=== PATIENT | female | born 1940 | race Caucasian/White ===

== ENCOUNTER 2017-08-17 05:55 | Emergency (ER) | payer MEDICARE, MEDICAID ==
[2017-08-17 05:55] VITALS: BMI 16.3
[2017-08-17 06:18] VITALS: RESP 18
--- NOTE | 2017-08-17 07:21 | C.PDOC ---
History Of Present Illness 76 yr old female with PMHx of 2 cardiac stents s/p heart attack "years ago" and colostomy bag presents to the ER for evaluation of fever, chills and dry cough for the past 2-3 days. Patient denies chest pain, SOB, nausea, vomiting, abdominal pain, diarrhea or headache. PMD: Dr. Ling Medina Time Seen by Provider: 08/17/17 07:07 Chief Complaint (Nursing): Flu-like Symptoms History Per: Patient History/Exam Limitations: no limitations Onset/Duration Of Symptoms: Days (2-3) Current Symptoms Are (Timing): Still Present Past Medical History Reviewed: Historical Data, Nursing Documentation, Vital Signs Vital Signs: Last Vital Signs Temp 98.6 F 08/17/17 10:28 Pulse 76 08/17/17 10:28 Resp 18 08/17/17 10:28 BP 166/70 H 08/17/17 10:28 Pulse Ox 97 08/17/17 10:42 - Medical History PMH: CAD, Cardia Arrhythmia, Gastritis, HTN, Hypercholesterolemia Surgical History: Coronary Stent Family History: States: No Known Family Hx - Social History Hx Tobacco Use: No Hx Alcohol Use: No Hx Substance Use: No - Immunization History Hx Tetanus Toxoid Vaccination: No Hx Influenza Vaccination: No Hx Pneumococcal Vaccination: No Review Of Systems Except As Marked, All Systems Reviewed And Found Negative. Constitutional: Positive for: Fever (100), Chills Cardiovascular: Negative for: Chest Pain Respiratory: Positive for: Cough (dry). Negative for: Shortness of Breath Gastrointestinal: Negative for: Nausea, Vomiting, Abdominal Pain, Diarrhea Neurological: Negative for: Headache Physical Exam - Physical Exam Appears: Non-toxic, No Acute Distress Skin: Warm, Dry, No Rash Head: Atraumatic, Normacephalic Eye(s): bilateral: Normal Inspection, PERRL, EOMI Oral Mucosa: Moist Neck: Normal, Normal ROM, Supple Cardiovascular: Rhythm Regular, No Murmur Respiratory: Normal Breath Sounds, No Rales, No Rhonchi, No Stridor, No Wheezing Gastrointestinal/Abdominal: Normal Exam, Soft, No Tenderness, No Guarding, No Rebound, Other ((+) Colostomy bag present) Extremity: Normal ROM, No Swelling Neurological/Psych: Oriented x3, Normal Speech, Normal Motor ED Course And Treatment - Laboratory Results Result Diagrams: 08/17/17 08:45 08/17/17 10:00 ECG: Interpreted By Me, Viewed By Me ECG Rhythm: Sinus Rhythm Interpretation Of ECG: Normal intervals. T wave inversion in lead 3. Rate From EC (BPM) O2 Sat by Pulse Oximetry: 97 (RA) Pulse Ox Interpretation: Normal - Other Rad CXR X-Ray: Viewed By Me, Read By Radiologist Interpretation: HISTORY: COUGH SOB. COMPARISON: 08/13/2015. TECHNIQUE: Chest PA and lateral. FINDINGS: LUNGS: No consolidative infiltrate. PLEURA: No significant pleural effusion identified. No pneumothorax apparent. CARDIOVASCULAR: Normal heart size para cardiac stent noted. OSSEOUS STRUCTURES : No significant abnormalities. VISUALIZED UPPER ABDOMEN: Normal. OTHER FINDINGS: Metallic densities right paracentral on clothing. IMPRESSION: No consolidative infiltrate. No pulmonary venous congestion or pneumothorax Medical Decision Making Medical Decision Making: IMPRESSION: Flu like symptoms PLAN: * CXR * EKG * Troponin * CBC * CMP * BNP * Influenza NOTE: * Labs all resulted normal. * Patient is given Rx. * Patient is stable for discharge home. Disposition Counseled Patient/Family Regarding: Studies Performed, Diagnosis, Need For Followup, Rx Given - Disposition Disposition: HOME/ ROUTINE Disposition Time: 10:40 Condition: STABLE Additional Instructions: follow up with your doctor in 2 days call to make an appointment take medications as prescribed return to ER if symptoms worsens or progress Prescriptions: Albuterol HFA [Ventolin HFA 90 mcg/actuation (8 g)] 2 puff IH [id number] #1 puff Azithromycin [Zithromax] 250 mg PO DAILY #4 tab Hydrocodone/Chlorpheniramine [Tussionex] 5 ml PO QPM #80 ml Instructions: Acute Bronchitis (ED) Forms: [facility] (Vietnamese), General Discharge Instructions Print Language: MALAGASY - Clinical Impression Clinical Impression: Bronchitis - Scribe Statement The provider has reviewed the documentation as recorded by the Ximena Bryant Provider Attestation: All medical record entries made by the Ruddyiblibrado were at my direction and personally dictated by me. I have reviewed the chart and agree that the record accurately reflects my personal performance of the history, physical exam, medical decision making, and the department course for this patient. I have also personally directed, reviewed, and agree with the discharge instructions and disposition.
--- NOTE | 2017-08-17 08:11 | RAD ---
HISTORY: COUGH SOB COMPARISON: 08/13/2015 TECHNIQUE: Chest PA and lateral FINDINGS: LUNGS: No consolidative infiltrate PLEURA: No significant pleural effusion identified. No pneumothorax apparent. CARDIOVASCULAR: Normal heart size para cardiac stent noted OSSEOUS STRUCTURES: No significant abnormalities. VISUALIZED UPPER ABDOMEN: Normal. OTHER FINDINGS: Metallic densities right paracentral on clothing IMPRESSION: No consolidative infiltrate. No pulmonary venous congestion or pneumothorax
[2017-08-17 08:48] LABS: BASO % 0.7 % (0.0-2.0); EOS % 0.1 % (0.0-4.0); HEMOGLOBIN 14.1 g/dL (11.0-16.0); LYMPH # 0.6 K/uL (1.0-4.3); LYMPH % 9.6 % (20.0-40.0); MEAN CELL VOLUME 74.3 fL (81.0-99.0); MEAN CORPUSCULAR HEMOGLOBIN 24.6 pg (27.0-31.0); MEAN CORPUSCULAR HGB CONC 33.1 g/dL (33.0-37.0); MONO # 0.7 K/uL (0.0-0.8); MONO % 11.9 % (0.0-10.0); NEUT # 4.8 K/uL (1.8-7.0); NEUT % 77.7 % (50.0-75.0); NRBC % 0.1 % (0.0-2.0); PLATELET COUNT 139 K/uL (130-400); RBC 5.73 Mil/uL (3.80-5.20); RED CELL DISTRIBUTION WIDTH 14.5 % (11.5-14.5); WHITE BLOOD COUNT 6.2 K/uL (4.8-10.8)
[2017-08-17 09:40] LABS: ANISOCYTOSIS SLIGHT; BANDS 3 % (0-2); LYMPHOCYTE 10 % (20-40); MONOCYTE 11 % (0-10); NEUTROPHIL 76 % (50-75); PLATELET ESTIMATE NORMAL (NORMAL); TOTAL CELLS COUNTED 100
[2017-08-17 09:42] LABS: LARGE PLATELETS PRESENT; TOXIC GRANULATION PRESENT
[2017-08-17 10:22] LABS: ALB/GLOB RATIO 1.1 (1.0-2.1); ALBUMIN 3.8 g/dL (3.5-5.0); ALT/SGPT 23 U/L (9-52); AST/SGOT 36 U/L (14-36); BLOOD UREA NITROGEN 11 mg/dL (7-17); CALCIUM 8.7 mg/dl (8.6-10.4); GFR AFRICAN-AMERICAN > 60; GFR NON-AFRICAN AMERICAN > 60
[2017-08-17 10:28] VITALS: BP 166/70; PULSE 76; TEMP 98.6
[2017-08-17 10:34] LABS: B-TYPE NATRIURETIC PEPTIDE 565 pg/mL (0-900)
[2017-08-17 10:42] VITALS: O2SAT 97
--- NOTE | 2017-08-17 20:54 | CARD ---
APPROVED REPORT EKG Measurement Heart [id number] <Conclusion> Normal sinus rhythm Nonspecific ST abnormality Abnormal ECG
== END 2017-08-17 11:05 | disposition home or self-care (01) ==
LOC: C.ER 05:55
DX: J40 Bronchitis, not specified as acute or chronic (principal); I10 Essential (primary) hypertension; E78.00 Pure hypercholesterolemia, unspecified; I25.10 Atherosclerotic heart disease of native coronary artery without angina pectoris

== ENCOUNTER 2018-03-07 07:20 | Emergency (ER) | payer MEDICARE, MEDICAID ==
[2018-03-07 07:21] VITALS: BMI 16.3
[2018-03-07] MEDS ORDERED: Aluminum Hydroxide/Magnesium Hydroxide Susp (30 mL) ONE (07:48)
[2018-03-07] MEDS ORDERED: Sodium Chloride 0.9% 1,000 ML ONE (07:49)
--- NOTE | 2018-03-07 07:53 | C.PDOC ---
History Of Present Illness 77yo female, comes to ER via ambulance after she experienced a "burning" abdominal discomfort after she drank orange juice this morning. She reports an episode of vomiting as well. Patient states she has had similar episodes previously as well. She denies any fever, chills, chest pain and offers no other complaints. Time Seen by Provider: 03/07/18 07:22 Chief Complaint (Nursing): Abdominal Pain History Per: Patient History/Exam Limitations: no limitations Onset/Duration Of Symptoms: Mins Current Symptoms Are (Timing): Still Present Location Of Pain/Discomfort: Diffuse Quality Of Discomfort: Burning Associated Symptoms: Vomiting Recent travel outside of the [place]: No Past Medical History Reviewed: Historical Data, Nursing Documentation, Vital Signs Vital Signs: Last Vital Signs Temp 97.7 F 03/07/18 10:00 Pulse 52 L 03/07/18 10:00 Resp 20 03/07/18 10:00 BP 145/59 L 03/07/18 10:00 Pulse Ox 99 03/07/18 10:00 - Medical History PMH: CAD, Cardia Arrhythmia, Gastritis, HTN, Hypercholesterolemia Surgical History: Coronary Stent Other Surgeries: colostomy Family History: States: No Known Family Hx - Social History Hx Tobacco Use: No Hx Alcohol Use: No Hx Substance Use: No - Immunization History Hx Tetanus Toxoid Vaccination: No Hx Influenza Vaccination: No Hx Pneumococcal Vaccination: No Review Of Systems Except As Marked, All Systems Reviewed And Found Negative. 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), left: Normal Inspection, PERRL, EOMI Oral Mucosa: Moist Throat: Normal Neck: Supple Cardiovascular: Rhythm Regular Respiratory: Normal Breath Sounds Gastrointestinal/Abdominal: Soft, No Tenderness, No Guarding, No Rebound Back: Normal Inspection Neurological/Psych: Oriented x3 Gait: Steady ED Course And Treatment - Laboratory Results Result Diagrams: 03/07/18 08:00 03/07/18 08:00 Lab Interpretation: Normal ECG: Interpreted By Me, Viewed By Me ECG Rhythm: Sinus Bradycardia ECG Interpretation: No Acute Changes Rate From EC O2 Sat by Pulse Oximetry: 99 (RA) Pulse Ox Interpretation: Normal Progress Note: Labs and UA ordered. Patient given IV Fluids, Maalox, Pepcid and Zofran. On re-evaluation abdomen soft, feeling better, tolerating PO Reassessment Condition: Improved Disposition Counseled Patient/Family Regarding: Studies Performed, Diagnosis, Need For Followup, Rx Given - Disposition Referrals: Mirtha Medina MD [Staff Provider] - Disposition: HOME/ ROUTINE Disposition Time: 10:00 Condition: STABLE Additional Instructions: Follow up with your PMD for further evaluation Prescriptions: Famotidine [Pepcid AC] 10 mg PO BID #20 tablet Instructions: Gastritis, Ulcer and Gastritis Diet Forms: [facility] (Estonian) - POA Present On Arrival: None - Clinical Impression Clinical Impression: Vomiting, Gastritis - PA / CASTING MACHINE OPERATOR / Resident Statement MD/DO has reviewed & agrees with the documentation as recorded. - Scribe Statement The provider has reviewed the documentation as recorded by the Ximena Reich Provider Attestation: All medical record entries made by the Ximena were at my direction and personally dictated by me. I have reviewed the chart and agree that the record accurately reflects my personal performance of the history, physical exam, medical decision making, and the department course for this patient. I have also personally directed, reviewed, and agree with the discharge instructions and disposition.
[2018-03-07] MEDS: Sodium Chloride 0.9% 1,000 ML IV ONE (08:00)
[2018-03-07] MEDS: Alum-Mag Hydrox-Simethicone Susp (30 mL) PO STA (08:04)
[2018-03-07 08:05] LABS: BASO # 0.1 K/uL (0.0-0.2); BASO % 1.2 % (0.0-2.0); EOS # 0.2 K/uL (0.0-0.7); HEMOGLOBIN 11.8 g/dL (11.0-16.0); LYMPH # 2.1 K/uL (1.0-4.3); MEAN CELL VOLUME 75.6 fL (81.0-99.0); MEAN CORPUSCULAR HEMOGLOBIN 24.5 pg (27.0-31.0); MEAN CORPUSCULAR HGB CONC 32.4 g/dL (33.0-37.0); MEAN PLATELET VOLUME 7.6 fL (7.2-11.7); MONO # 0.7 K/uL (0.0-0.8); MONO % 8.7 % (0.0-10.0); NEUT # 4.6 K/uL (1.8-7.0); NEUT % 60.1 % (50.0-75.0); RBC 4.8 Mil/uL (3.80-5.20); RED CELL DISTRIBUTION WIDTH 14.4 % (11.5-14.5); WHITE BLOOD COUNT 7.7 K/uL (4.8-10.8)
[2018-03-07 08:16] LABS: ALBUMIN 3.6 g/dL (3.5-5.0); ALT/SGPT 19 U/L (9-52); AST/SGOT 19 U/L (14-36); BLOOD UREA NITROGEN 17 mg/dL (7-17); CALCIUM 9.4 mg/dl (8.6-10.4); GFR AFRICAN-AMERICAN > 60; GFR NON-AFRICAN AMERICAN > 60; LIPASE 184 U/L (23-300)
[2018-03-07 08:33] VITALS: PULSE 52; RESP 20
[2018-03-07 09:24] VITALS: O2SAT 99
[2018-03-07 09:56] LABS: SQUAMOUS EPITHIAL 3 /hpf (0-5); URINE BILIRUBIN NEGATIVE (NEGATIVE); URINE BLOOD NEGATIVE (NEGATIVE); URINE CLARITY Hazy (Clear); URINE COLOR Yellow (YELLOW); URINE GLUCOSE (UA) NORMAL (Normal); URINE LEUKOCYTE ESTERASE TRACE Leu/uL (Negative); URINE PROTEIN NEGATIVE (NEGATIVE); URINE UROBILINOGEN NORMAL mg/dL (0.2-1.0)
[2018-03-07 10:07] VITALS: BP 145/59; TEMP 97.7
--- NOTE | 2018-03-08 11:11 | CARD ---
APPROVED REPORT Date of service: 03/07/2018 EKG Measurement Heart [id number] 220P22 [id number] <Conclusion> Sinus bradycardia with sinus arrhythmia with 1st degree AV block Minimal voltage criteria for LVH, may be normal variant Borderline ECG
== END 2018-03-07 10:09 | disposition home or self-care (01) ==
LOC: C.ER 07:20
DX: K29.70 Gastritis, unspecified, without bleeding (principal); I25.10 Atherosclerotic heart disease of native coronary artery without angina pectoris; I10 Essential (primary) hypertension; E78.00 Pure hypercholesterolemia, unspecified; Z95.5 Presence of coronary angioplasty implant and graft
CPT/HCPCS: 80053; 81001; 83690; 85025; 93005; 96361; 96374; 96375; 99285; J2405; J7030

== ENCOUNTER 2018-08-04 17:42 | Emergency (ER) | payer MEDICARE, MEDICAID ==
[2018-08-04 17:43] VITALS: BMI 16.3
[2018-08-04 17:58] VITALS: RESP 14; O2SAT 100
[2018-08-04 18:41] LABS: BASO # 0.1 K/uL (0.0-0.2); BASO % 1.1 % (0.0-2.0); EOS # 0.1 K/uL (0.0-0.7); HEMOGLOBIN 12.8 g/dL (11.0-16.0); LYMPH # 1.3 K/uL (1.0-4.3); LYMPH % 13.2 % (20.0-40.0); MEAN CORPUSCULAR HEMOGLOBIN 24.3 pg (27.0-31.0); MEAN CORPUSCULAR HGB CONC 32.4 g/dL (33.0-37.0); MONO # 0.6 K/uL (0.0-0.8); MONO % 5.7 % (0.0-10.0); NRBC % 0.1 % (0.0-2.0); RBC 5.26 Mil/uL (3.80-5.20); RED CELL DISTRIBUTION WIDTH 13.8 % (11.5-14.5); WHITE BLOOD COUNT 10.1 K/uL (4.8-10.8)
[2018-08-04 18:54] LABS: ALB/GLOB RATIO 1.2 (1.0-2.1); ALBUMIN 4.2 g/dL (3.5-5.0); ALT/SGPT 21 U/L (9-52); AST/SGOT 26 U/L (14-36); BLOOD UREA NITROGEN 19 mg/dL (7-17); CALCIUM 9.5 mg/dl (8.6-10.4); GFR NON-AFRICAN AMERICAN > 60
[2018-08-04 19:33] LABS: B-TYPE NATRIURETIC PEPTIDE 514 pg/mL (0-900)
[2018-08-04] MEDS ORDERED: Lidocaine 2% MPF (5 ml) Inj ONE (19:40)
[2018-08-04] MEDS ORDERED: Bacitracin 500 Units/gm Oint Foilpak UD ONE (19:40)
--- NOTE | 2018-08-04 20:48 | C.PDOC ---
History Of Present Illness 77 y/o female comes in complaining of a laceration on her left forehead s/p fall earlier today. Patient states she tripped and fell at home, striking her forehead on the ground. Patient was home with her . Also complains she had abdominal pain which caused her to lean forward, which caused her to fall over. Patient reports shes been thinking about her son who committed suicide at age 19. Time Seen by Provider: 08/04/18 18:19 Chief Complaint (Nursing): Syncope History Per: Patient History/Exam Limitations: no limitations Onset/Duration Of Symptoms: Hrs Current Symptoms Are (Timing): Still Present Past Medical History Reviewed: Historical Data, Nursing Documentation, Vital Signs Vital Signs: Last Vital Signs Temp 98.0 F 08/04/18 17:50 Pulse 59 L 08/04/18 17:50 Resp 14 08/04/18 17:50 BP 161/50 H 08/04/18 17:50 Pulse Ox 100 08/04/18 17:50 - Medical History PMH: CAD, Cardia Arrhythmia, Gastritis, HTN, Hypercholesterolemia Denies: Atrial Fibrillation, CHF, Mitral Valve Prolapse, Peripheral Edema, Chronic Kidney Disease Surgical History: Coronary Stent (x2) Denies: Pacemaker Family History: States: No Known Family Hx - Social History Hx Tobacco Use: No Hx Alcohol Use: No Hx Substance Use: No - Immunization History Hx Tetanus Toxoid Vaccination: No Hx Influenza Vaccination: No Hx Pneumococcal Vaccination: No Review Of Systems Except As Marked, All Systems Reviewed And Found Negative. Constitutional: Negative for: Fever, Chills Cardiovascular: Negative for: Chest Pain Respiratory: Negative for: Shortness of Breath Gastrointestinal: Positive for: Abdominal Pain. Negative for: Vomiting Skin: Positive for: Other (laceration on L forehead) Neurological: Negative for: Weakness, Numbness Physical Exam - Physical Exam Appears: Non-toxic, No Acute Distress Skin: Warm, Dry Head: Atraumatic, Normacephalic, Other (Hematome in left lateral eyebrow with 2 cm laceration, no bony tenderness) Eye(s): right: Other (right eye missing from an old injury, sutures closed) Oral Mucosa: Moist Neck: Supple Cardiovascular: Rhythm Regular, No Murmur Respiratory: Normal Breath Sounds, No Rales, No Rhonchi, No Wheezing Gastrointestinal/Abdominal: Soft, No Tenderness, Other (Colostomy bag in LLQ) Extremity: Bilateral: Normal ROM Neurological/Psych: Oriented x3, Normal Speech ED Course And Treatment - Laboratory Results Result Diagrams: 08/04/18 18:38 08/04/18 18:38 Lab Results: Troponin I < 0.0120 ng/mL (0.00-0.120) 08/04/18 18:38 NT-Pro-B Natriuret Pep 514 pg/mL (0-900) 08/04/18 18:38 Total Bilirubin 0.5 mg/dL (0.2-1.3) 08/04/18 18:38 AST 26 U/L (14-36) 08/04/18 18:38 ALT 21 U/L (9-52) 08/04/18 18:38 Alkaline Phosphatase 125 U/L (38-126) 08/04/18 18:38 Total Protein 7.6 g/dL (6.3-8.3) 08/04/18 18:38 Albumin 4.2 g/dL (3.5-5.0) 08/04/18 18:38 Globulin 3.4 gm/dL (2.2-3.9) 08/04/18 18:38 Albumin/Globulin Ratio 1.2 (1.0-2.1) 08/04/18 18:38 Lab Interpretation: Normal ECG: Interpreted By Me ECG Rhythm: Sinus Rhythm ECG Interpretation: Normal Rate From EC O2 Sat by Pulse Oximetry: 100 (RA) Pulse Ox Interpretation: Normal - Radiology CXR: Interpreted by Me CXR Interpretation: Yes: No Acute Disease - CT Scan/US head Ct Other Rad Studies (CT/US): Interpreted By Me, Radiology Report Reviewed (neg) CT/US Interpretation: FINDINGS: BRAIN. No acute intraparenchymal hemorrhage. No mass lesion. No CT evidence for acute territorial infarct. No midline shift or extra-axial collections. VENTRICLES: No hydrocephalus. ORBITS: Note is made of a small calcified globe of the right orbit. SINUSES AND MASTOIDS: The paranasal sinuses and mastoid air cells are clear. BONES: No fracture. SOFT TISSUES: Unremarkable. IMPRESSION: No acute intracranial abnormality. Small calcified globe right orbit. Clinical correlation advised. Reevaluation Time: 20:46 Reassessment Condition: Improved Laceration - Laceration Repair Left lateral eye Wound Length (In cm): 2cm Anesthesia: Lidocaine 1% Wound Examination: Irrigated With Saline Wound Closure: Suture (3) Suture Technique And Material Used: Nylon (3.0) Medical Decision Making Medical Decision Making: Plan: --Head CT --EKG --Bloodwork --Chest XR --UA belly cramp pain due to anxiety about son who commited suicide @ age 19 fall to face/floor L eyebrow lac 2 cm now s/p lac repair defer abx for risk/benefit of prophylactic abx in the elderly. suture removal 7-10 days Disposition Doctor Will See Patient In The: Office Counseled Patient/Family Regarding: Studies Performed, Diagnosis - Disposition Referrals: Bonnie Richey [facility] [Outside] [facility] [Outside] Luis M Medina MD [Staff Provider] - Disposition: HOME/ ROUTINE Disposition Time: 20:47 Condition: GOOD Additional Instructions: head CT negative 3 sutures to L eyebrow- suture removal in 7-10 days keep clean and bandaged. Instructions: Laceration Repair With Stitches (DC), Preventing Falls Forms: [employer] (Welsh) - Clinical Impression Clinical Impression: Facial laceration - Scribe Statement The provider has reviewed the documentation as recorded by the Ximena Li Provider Attestation: All medical record entries made by the Scribe were at my direction and personally dictated by me. I have reviewed the chart and agree that the record accurately reflects my personal performance of the history, physical exam, medical decision making, and the department course for this patient. I have also personally directed, reviewed, and agree with the discharge instructions and disposition.
--- NOTE | 2018-08-04 21:33 | CT ---
Date of service: 08/04/2018 PROCEDURE: CT HEAD WITHOUT CONTRAST. HISTORY: syncope COMPARISON: None available. TECHNIQUE: Axial computed tomography images were obtained through the head/brain without intravenous contrast. Radiation dose: Total exam DLP = 899.17 mGy-cm. This CT exam was performed using one or more of the following dose reduction techniques: Automated exposure control, adjustment of the mA and/or kV according to patient size, and/or use of iterative reconstruction technique. FINDINGS: HEMORRHAGE: No intracranial hemorrhage. BRAIN: There are mild chronic microangiopathic changes. There is no mass, mass effect or abnormal extra-axial fluid collection. There is no territorial infarction. The midline sagittal structures are normal. VENTRICLES: There is mild age-related global parenchymal volume loss and proportionate enlargement of the ventricles and cortical sulci. CALVARIUM: There is no calvarial fracture or extracranial soft tissue swelling. PARANASAL SINUSES: Predominantly clear. MASTOID AIR CELLS: Predominantly clear. 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 There is mild left periorbital soft tissue swelling. IMPRESSION: No acute intracranial abnormality. Mild left periorbital soft tissue swelling. A preliminary report was provided by [email or web address].
--- NOTE | 2018-08-04 21:37 | RAD ---
Date of service: 08/04/2018 PROCEDURE: CHEST RADIOGRAPH, 1 VIEW HISTORY: SOB COMPARISON: 08/17/2017. FINDINGS: LUNGS: The lungs are well inflated and clear. PLEURA: No pneumothorax or pleural effusion. CARDIOVASCULAR: The heart is normal in size. No aortic atherosclerotic calcifications present. OSSEOUS STRUCTURES: Within normal limits for the patient's age. VISUALIZED UPPER ABDOMEN: Normal. OTHER FINDINGS: None. IMPRESSION: No active pulmonary disease.
[2018-08-04 22:46] VITALS: BP 148/52; PULSE 78; TEMP 98
--- NOTE | 2018-08-06 14:56 | CARD ---
APPROVED REPORT Date of service: 08/04/2018 EKG Measurement Heart [id number] [place] 188P45 [id number] <Conclusion> Sinus bradycardia Left ventricular hypertrophy with repolarization abnormality Abnormal ECG
== END 2018-08-04 23:22 | disposition home or self-care (01) ==
LOC: C.ER 17:42
DX: S01.112A Laceration without foreign body of left eyelid and periocular area, initial encounter (principal); W01.0XXA Fall on same level from slipping, tripping and stumbling without subsequent striking against object, initial encounter; Y92.009 Unspecified place in unspecified non-institutional (private) residence as the place of occurrence of the external cause

== ENCOUNTER 2018-09-14 23:50 | Emergency (ER) | payer MEDICARE, MEDICAID ==
[2018-09-14 23:53] VITALS: BMI 16.3
[2018-09-15] VITALS: O2SAT 99
--- NOTE | 2018-09-15 00:27 | C.PDOC ---
History Of Present Illness 77 year old female presents to the ED for suture removal. Patient denies fever, chills, nausea, vomit, new injury, fall, trauma. Time Seen by Provider: 09/15/18 00:01 Chief Complaint (Nursing): Suture/Staple Removal History Per: Patient History/Exam Limitations: no limitations Onset/Duration Of Symptoms: Days Ago Current Symptoms Are (Timing): Better Location Of Injury: Left: Face Recent travel outside of the [place]: No Additional History Per: Patient Past Medical History Reviewed: Historical Data, Nursing Documentation, Vital Signs Vital Signs: Last Vital Signs Temp 98.0 F 09/14/18 23:58 Pulse 60 09/14/18 23:58 Resp 18 09/14/18 23:58 BP 206/79 H 09/14/18 23:58 Pulse Ox 99 09/14/18 23:58 - Medical History PMH: CAD, Cardia Arrhythmia, Gastritis, HTN, Hypercholesterolemia Denies: Atrial Fibrillation, CHF, Mitral Valve Prolapse, Peripheral Edema, Chronic Kidney Disease Surgical History: Coronary Stent (x2) Denies: Pacemaker Family History: States: Unknown Family Hx - Social History Hx Tobacco Use: No Hx Alcohol Use: No Hx Substance Use: No - Immunization History Hx Tetanus Toxoid Vaccination: No Hx Influenza Vaccination: No Hx Pneumococcal Vaccination: No Review Of Systems Constitutional: Negative for: Fever, Chills Eyes: Negative for: Pain Respiratory: Negative for: Cough Gastrointestinal: Negative for: Nausea, Vomiting Skin: Positive for: Other (laceration) Neurological: Negative for: Weakness, Numbness, Headache, Dizziness Physical Exam - Physical Exam Appears: Non-toxic, No Acute Distress Skin: Normal Color, Warm, Dry Head: Atraumatic, Normacephalic, Other (healed woud left outer eyebrow, no signs of cellulitis) Eye(s): bilateral: Normal Inspection, PERRL, EOMI Oral Mucosa: Moist Neck: Normal ROM, Supple Chest: Symmetrical Extremity: Normal ROM Neurological/Psych: Oriented x3, Normal Speech, Normal Cognition, Normal Motor Gait: Steady ED Course And Treatment O2 Sat by Pulse Oximetry: 99 (ON RA) Pulse Ox Interpretation: Normal Medical Decision Making Medical Decision Making: Three sutures removed by me without difficulty. Disposition - Disposition Referrals: Mirtha Medina MD [Staff Provider] - Disposition: HOME/ ROUTINE Disposition Time: 00:27 Condition: GOOD Additional Instructions: Return if worsened. Instructions: Stitches Removal Forms: [employer] (Ugandan) - Clinical Impression Clinical Impression: Removal of suture - PA / SPORTS ADMINISTRATOR / Resident Statement MD/DO has reviewed & agrees with the documentation as recorded. - Scribe Statement The provider has reviewed the documentation as recorded by the Scribe Alexandr Benedict All medical record entries made by the Scribe were at my direction and personally dictated by me. I have reviewed the chart and agree that the record accurately reflects my personal performance of the history, physical exam, medical decision making, and the department course for this patient. I have also personally directed, reviewed, and agree with the discharge instructions and disposition.
[2018-09-15 00:40] VITALS: BP 168/72; PULSE 80; RESP 16; TEMP 98.7
== END 2018-09-15 00:39 | disposition home or self-care (01) ==
LOC: C.ER 23:50
DX: Z48.02 Encounter for removal of sutures (principal)

== ENCOUNTER 2018-09-23 16:08 | Observation (INO) | payer MEDICARE, MEDICAID ==
[2018-09-23 16:22] VITALS: BMI 16.7
--- NOTE | 2018-09-23 16:33 | C.PDOC ---
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 She describes the pain to her chest as pressure-like. Patient states that she is experiencing dizziness. Patient has a PMHx of hypertension, CAD s/p stents, hyperlipidemia, and colostomy. Patient denies fever, palpitations, shortness of breath, nausea, and vomiting. Time Seen by Provider: 09/23/18 16:18 Chief Complaint (Nursing): Chest Pain History Per: Patient History/Exam Limitations: no limitations Onset/Duration Of Symptoms: Hrs Current Symptoms Are (Timing): Still Present Quality: Pressure, "Pain" Associated Symptoms: denies: Nausea, Dyspnea Modifying Factors: None Exacerbating Factors: None Alleviating Factors: None Additional History Per: Patient Past Medical History Reviewed: Historical Data, Nursing Documentation, Vital Signs Vital Signs: Last Vital Signs Temp 98.7 F 09/23/18 16:14 Pulse 67 09/23/18 16:14 Resp 18 09/23/18 16:14 BP 222/67 H 09/23/18 16:14 Pulse Ox 100 09/23/18 16:14 - Medical History PMH: CAD, Cardia Arrhythmia, Gastritis, HTN, Hypercholesterolemia Denies: Atrial Fibrillation, CHF, Mitral Valve Prolapse, Peripheral Edema, Chronic Kidney Disease Surgical History: Coronary Stent (x2) Denies: Pacemaker Other Surgeries: Colostomy Family History: States: Unknown Family Hx - Social History Hx Tobacco Use: No Hx Alcohol Use: No Hx Substance Use: No - Immunization History Hx Tetanus Toxoid Vaccination: No Hx Influenza Vaccination: No Hx Pneumococcal Vaccination: No Review Of Systems Constitutional: Negative for: Fever, Chills, Weakness Cardiovascular: Positive for: Chest Pain. Negative for: Palpitations Respiratory: Negative for: Shortness of Breath Gastrointestinal: Negative for: Nausea, Vomiting Neurological: Positive for: Dizziness. Negative for: Weakness, Numbness Physical Exam - Physical Exam Appears: Well, Non-toxic, No Acute Distress Skin: Normal Color, Warm, Dry Head: Atraumatic, Normacephalic Neck: Normal ROM, Supple Chest: Symmetrical, No Deformity Cardiovascular: Rhythm Regular, No Murmur Respiratory: No Accessory Muscle Use Gastrointestinal/Abdominal: Soft, No Tenderness, Other (colostomy bag) Neurological/Psych: Oriented x3, Normal Speech, Normal Cognition ED Course And Treatment - Laboratory Results Result Diagrams: 09/23/18 17:18 09/23/18 17:18 ECG: Interpreted By Me, Viewed By Me ECG Rhythm: Sinus Rhythm, Nonspecific Changes Interpretation Of ECG: Non-specific ST/T wave changes. No interval changes from previous. Rate From EC O2 Sat by Pulse Oximetry: 100 (in RA) - Other Rad CXR X-Ray: Interpreted by Me, Viewed By Me Interpretation: IMPRESSION: Minimal bibasilar atelectasis. Hyperinflation; rule out underlying chronic changes of COPD. Medical Decision Making Medical Decision Making: Impression:77 year old female with chest pain ro a cs Plan: EKG and CXR ordered for patient Labs ordered with UA and troponin pt reassesed bp improving pain resolved. in nad. symptom free h/o of cad, accepted by dr foster Disposition - Disposition Disposition: HOSPITALIZED Disposition Time: 19:56 Condition: STABLE - Clinical Impression Clinical Impression: Chest pain - Scribe Statement The provider has reviewed the documentation as recorded by the Scribe (Sabine Cunha) All medical record entries made by the Scribe were at my direction and personally dictated by me. I have reviewed the chart and agree that the record accurately reflects my personal performance of the history, physical exam, medical decision making, and the department course for this patient. I have also personally directed, reviewed, and agree with the discharge instructions and disposition. Decision To Admit - Pt Status Changed To: Hospital Disposition Of: Observation - . Bed Request Type: Telemetry Admitting Physician: Mirtha Foster Patient Diagnosis: Chest pain
[2018-09-23 17:25] LABS: BASO # 0.1 K/uL (0.0-0.2); BASO % 1.1 % (0.0-2.0); EOS # 0.2 K/uL (0.0-0.7); EOS % 2.9 % (0.0-4.0); HEMOGLOBIN 12.4 g/dL (11.0-16.0); LYMPH # 2.2 K/uL (1.0-4.3); LYMPH % 34.8 % (20.0-40.0); MEAN CELL VOLUME 76.3 fL (81.0-99.0); MEAN CORPUSCULAR HEMOGLOBIN 23.6 pg (27.0-31.0); MEAN CORPUSCULAR HGB CONC 30.9 g/dL (33.0-37.0); MEAN PLATELET VOLUME 7.8 fL (7.2-11.7); MONO # 0.7 K/uL (0.0-0.8); MONO % 10.9 % (0.0-10.0); NEUT # 3.2 K/uL (1.8-7.0); NEUT % 50.3 % (50.0-75.0); RBC 5.24 Mil/uL (3.80-5.20); RED CELL DISTRIBUTION WIDTH 14.2 % (11.5-14.5); WHITE BLOOD COUNT 6.4 K/uL (4.8-10.8)
[2018-09-23 17:34] LABS: INR 1.1; PROTHROMBIN TIME 12.1 SECONDS (9.7-12.2)
[2018-09-23 17:40] LABS: ALB/GLOB RATIO 1.2 (1.0-2.1); ALBUMIN 3.9 g/dL (3.5-5.0); ALT/SGPT 8 U/L (9-52); AST/SGOT 25 U/L (14-36); BLOOD UREA NITROGEN 18 mg/dL (7-17); CALCIUM 8.9 mg/dl (8.6-10.4); GFR NON-AFRICAN AMERICAN > 60
--- NOTE | 2018-09-23 18:18 | RAD ---
Date of service: 09/23/2018 HISTORY: Chest pain COMPARISON: None available. FINDINGS: LUNGS: Lungs are slightly hyperinflated; rule out sequela of underlying COPD.. Minimal bibasilar atelectasis.. PLEURA: No significant pleural effusion identified, no pneumothorax apparent. CARDIOVASCULAR: No aortic atherosclerotic calcification present. Normal cardiac size. No pulmonary vascular congestion. OSSEOUS STRUCTURES: No significant abnormalities. VISUALIZED UPPER ABDOMEN: Normal. OTHER FINDINGS: None. IMPRESSION: Minimal bibasilar atelectasis. Hyperinflation; rule out underlying chronic changes of COPD.
[2018-09-24 02:47] LABS: CK-MB 1.05 ng/mL (0.0-3.38)
--- NOTE | 2018-09-24 08:54 | HP ---
HISTORY OF PRESENT ILLNESS: This is a 77-year-old [place] female, came to the emergency room with history of severe chest pain associated with dizziness. The patient denies having nausea, vomiting, or diaphoresis. The patient denies headache. The patient has history of coronary artery disease and stent implanted in the past. REVIEW OF SYSTEMS: CARDIOVASCULAR SYSTEM: As mentioned above. RESPIRATORY SYSTEM: Negative for shortness of breath. GASTROINTESTINAL SYSTEM: Negative for nausea, vomiting, or abdominal pain. CENTRAL NERVOUS SYSTEM: Complaining of dizziness. No headache. No loss of consciousness. No edema on the legs. No urinary complaints. No fever. PSYCHIATRICAL: The patient is anxious. All other systems are negative. PAST HISTORY: History of coronary artery disease with stent in the past, cardiac arrhythmia, gastritis, hypertension, hyperlipidemia. MEDICATIONS: The patient's medications are reviewed by me. ALLERGIES: NO KNOWN ALLERGIES. FAMILY HISTORY: No known inherited disease. SOCIAL HISTORY: Nonalcoholic. No IVDA. PHYSICAL EXAMINATION: GENERAL: This is a 77-year-old [place] female, alert, oriented, and comfortable. VITAL SIGNS: Temperature 98.7, pulse 67, respirations 18, blood pressure 220/67 mmHg, and pulse ox is 100% on room air. HEENT: Normal. NECK: JVP is flat. Carotid, no bruits. LUNGS: No rales. No wheezing. HEART: S1 and S2 are normal. No gallop. No murmur. ABDOMEN: Soft and nontender. No organomegaly. CENTRAL NERVOUS SYSTEM: No focal neurological deficit. No edema of the legs. LABORATORY DATA: On admission, EKG has normal sinus rhythm. No acute ST-T changes. First set of troponin is negative. Other lab work is within normal limit. IMPRESSION: Acute coronary syndrome; coronary artery disease; peptic ulcer disease; hypertension, uncontrolled. PLAN: The patient will be admitted to the telemetry. We will do workup to rule out myocardial infarction. We will continue all the medications. Echocardiogram. Mirtha Medina MD
[2018-09-24 08:57] LABS: CK-MB 1.09 ng/mL (0.0-3.38)
[2018-09-24] MEDS: Multiple Vitamins Tab PO SCH (09:10)
[2018-09-24] MEDS ORDERED: Pneumococcal 23-Valent Vaccine IM ONE (10:00)
[2018-09-24] MEDS ORDERED: Nitroglycerin 2% Ointment Foilpak UD TOP PRN (10:04)
[2018-09-24] MEDS: Enoxaparin 40 mg Syringe SC SCH (10:19)
--- NOTE | 2018-09-24 12:06 | CP.PCM.PN ---
Subjective - Date & Time of Evaluation Date of Evaluation: 09/24/18 Time of Evaluation: 12:04 - Subjective Subjective: FEELS BETTER. NO CP. TROPONIN NEG. Objective - Vital Signs/Intake and Output Vital Signs (last 24 hours): Temp Pulse Resp BP Pulse Ox 97.8 F 56 L 18 195/65 H 100 09/24/18 08:48 09/24/18 08:48 09/24/18 08:48 09/24/18 09:36 09/24/18 08:48 - Medications Medications: Current Medications Amlodipine Besylate (Norvasc) 5 mg PO DAILY [facility] Aspirin (Aspirin Chewable) 81 mg PO DAILY [facility] Last Admin: 09/24/18 09:10 Dose: 81 mg Clopidogrel Bisulfate (Plavix) 75 mg PO DAILY [facility] Last Admin: 09/24/18 09:10 Dose: 75 mg Enoxaparin Sodium (Lovenox) 40 mg SC DAILY [facility] Last Admin: 09/24/18 10:19 Dose: 40 mg Famotidine (Pepcid) 20 mg PO DAILY [facility] Last Admin: 09/24/18 09:10 Dose: 20 mg Influenza Virus Vaccine (Flucelvax Quad [id number] Syr) 60 mcg IM .ONCE ONE Stop: 09/26/18 10:01 Lisinopril (Zestril) 2.5 mg PO DAILY [facility] Last Admin: 09/24/18 09:10 Dose: 2.5 mg Metoprolol Tartrate (Lopressor) 25 mg PO BID [facility] Last Admin: 09/24/18 09:36 Dose: 25 mg Multivitamins (Hexavitamin) 1 tab PO DAILY [facility] Last Admin: 09/24/18 09:10 Dose: 1 tab Nitroglycerin (Nitro-Bid 2% Oint) 1 ea TOP Q6H PRN PRN Reason: Other Rosuvastatin Calcium (Crestor) 5 mg PO DAILY [facility] Last Admin: 09/24/18 09:14 Dose: 5 mg - Labs Labs: 09/23/18 17:18 09/23/18 17:18 PT 12.1 SECONDS (9.7-12.2) 09/23/18 17:18 INR 1.1 09/23/18 17:18 APTT 30 SECONDS (21-34) 09/23/18 17:18 - Constitutional Appears: No Acute Distress, Chronically Ill - Eye Exam Eye Exam: Normal appearance, PERRL - ENT Exam ENT Exam: Mucous Membranes Moist - Respiratory Exam Respiratory Exam: Clear to Ausculation Bilateral, NORMAL BREATHING PATTERN - Cardiovascular Exam Cardiovascular Exam: REGULAR RHYTHM, +S1, +S2 - GI/Abdominal Exam GI & Abdominal Exam: Soft, Normal Bowel Sounds - Extremities Exam Extremities Exam: Full ROM, Normal Capillary Refill, Normal Inspection. absent: Joint Swelling, Pedal Edema - Neurological Exam Neurological Exam: Alert, Awake, CN II-XII Intact, Normal Gait, Oriented x3 - Psychiatric Exam Psychiatric exam: Normal Affect, Normal Mood Assessment and Plan - Assessment and Plan (Free Text) Assessment: CAD. HTN. Plan: CONSULT DR. PALMA. EXERCISE TEST.
[2018-09-24 15:43] VITALS: RESP 20
--- NOTE | 2018-09-24 18:22 | CARD ---
APPROVED REPORT Date of service: 09/24/2018 EXAM: Two-dimensional and M-mode echocardiogram with Doppler and color Doppler. Other Information Quality : GoodRhythm : INDICATION Chest Pain Palpitations RISK FACTORS Hypertension 2D DIMENSIONS IVSd0.7 (0.7-1.1cm)LVDd4.1 (3.9-5.9cm) PWd0.8 (0.7-1.1cm)LA Kdnhpg30 (18-58mL) LVDs2.5 (2.5-4.0cm)FS (%) 39.7 % LVEF (%)70.7 (>50%)LVEF (Ludwig's)58.98 % IVC0.00 cm M-Mode DIMENSIONS RVDd1.61 (2.1-3.2cm)Left Atrium (MM)3.02 (2.5-4.0cm) IVSd0.62 (0.7-1.1cm)Aortic Root2.50 (2.2-3.7cm) LVDd4.45 (4.0-5.6cm)Aortic Cusp Exc.1.61 (1.5-2.0cm) PWd0.68 (0.7-1.1cm)FS (%) 49 % LVDs2.29 (2.0-3.8cm)TAPSE15.51 cm LVEF (%)70 (>50%) Aortic Valve AI P 1/2 [id number] Mitral Valve MV E Zqnaasui85.9cm/sMV A Flyflalp82.4cm/sE/A ratio1.1 TDI Lateral E' Peak V5.71cm/sMedial E' Peak V5.45cm/sE/Lateral E'10.7 E/Medial E'11.2 Tricuspid Valve TR Peak Mqxsiaei745tl/sTR Peak Gr.67jrUwDWEN33ihKm LEFT VENTRICLE The left ventricle is normal size. There is normal left ventricular wall thickness. The left ventricular function is normal. The left ventricular ejection fraction is within the normal range. 59% No regional wall motion abnormalities noted. The left ventricular diastolic function is indeterminate. No left ventricle thrombus noted on this study. There is no ventricular septal defect visualized. There is no left ventricular aneurysm. There is no mass noted in the left ventricle. RIGHT VENTRICLE The right ventricle is normal size. There is normal right ventricular wall thickness. The right ventricular systolic function is normal. ATRIA The left atrium size is normal. The right atrium size is normal. The interatrial septum is intact with no evidence for an atrial septal defect. AORTIC VALVE The aortic valve is normal in structure and function. Moderate aortic regurgitation is present. There is no aortic valvular stenosis. There is no aortic valvular vegetation. MITRAL VALVE The mitral valve is normal in structure and function. There is no evidence of mitral valve prolapse. There is no mitral valve stenosis. There is mild mitral valve regurgitation noted. TRICUSPID VALVE The tricuspid valve is normal in structure and function. There is mild tricuspid valve regurgitation noted. Estiamaed PA systolic pressure is 39 mm Hg. There is no tricuspid valve prolapse or vegetation. There is no tricuspid valve stenosis. PULMONIC VALVE The pulmonary valve is normal in structure and function. There is no pulmonic valvular regurgitation. There is no pulmonic valvular stenosis. GREAT VESSELS The aortic root is normal in size. The ascending aorta is normal in size. The pulmonary artery is normal. The IVC is normal in size and collapses >50% with inspiration. PERICARDIAL EFFUSION The pericardium appears normal. There is no pleural effusion. <Conclusion> Normal LV systolic function. Moderate aortic regurgtation. Mild pulmonary HTN.
--- NOTE | 2018-09-24 19:24 | CARD ---
APPROVED REPORT Date of service: 09/23/2018 EKG Measurement Heart [id number] <Conclusion> Normal sinus rhythm with sinus arrhythmia Minimal voltage criteria for LVH, may be normal variant Nonspecific ST abnormality Abnormal ECG
--- NOTE | 2018-09-24 19:51 | CP.PCM.CON ---
History of Present Illness - History of Present Illness History of Present Illness: 77 F with hx of CAD s/p stents 2010, HYN and hyperlipidemia admitted for chest pain and dizziness Check stress test and ECHO in am 77 year old female presents to ED with complaint of chest pain that began [employer]. She describes the pain to her chest as pressure-like. Patient states that she is experiencing dizziness. Patient has a PMHx of hypertension, CAD s/p stents, hyperlipidemia, and colostomy. Patient denies fever, palpitations, shortness of breath, nausea, and vomiting. Chief Complaint (Nursing): Chest Pain History Per: Patient History/Exam Limitations: no limitations Onset/Duration Of Symptoms: Hrs Current Symptoms Are (Timing): Still Present Quality: Pressure, "Pain" Associated Symptoms: denies: Nausea, Dyspnea Modifying Factors: None Exacerbating Factors: None Alleviating Factors: None Additional History Per: Patient - Medical History PMH: CAD, Cardia Arrhythmia, Gastritis, HTN, Hypercholesterolemia Denies: Atrial Fibrillation, CHF, Mitral Valve Prolapse, Peripheral Edema, Chronic Kidney Disease Surgical History: Coronary Stent (x2) Denies: Pacemaker Other Surgeries: Colostomy Family History: States: Unknown Family Hx - Social History Hx Tobacco Use: No Hx Alcohol Use: No Hx Substance Use: No - Immunization History Hx Tetanus Toxoid Vaccination: No Hx Influenza Vaccination: No Hx Pneumococcal Vaccination: No Review Of Systems Constitutional: Negative for: Fever, Chills, Weakness Cardiovascular: Positive for: Chest Pain. Negative for: Palpitations Respiratory: Negative for: Shortness of Breath Gastrointestinal: Negative for: Nausea, Vomiting Neurological: Positive for: Dizziness. Negative for: Weakness, Numbness Physical Exam - Physical Exam Appears: Well, Non-toxic, No Acute Distress Skin: Normal Color, Warm, Dry Head: Atraumatic, Normacephalic Neck: Normal ROM, Supple Chest: Symmetrical, No Deformity Cardiovascular: Rhythm Regular, No Murmur Respiratory: No Accessory Muscle Use Gastrointestinal/Abdominal: Soft, No Tenderness, Other (colostomy bag) Neurological/Psych: Oriented x3, Normal Speech, Normal Cognition Past Patient History - Infectious Disease Hx of Infectious Diseases: None - Past Medical History & Family History Past Medical History?: Yes - Past Social History Smoking Status: Never Smoked - CARDIAC Hx Atrial Fibrillation: No Hx Cardia Arrhythmia: Yes Hx Congestive Heart Failure: No Hx Hypercholesterolemia: Yes Hx Hypertension: Yes Hx Mitral Valve Prolapse: No Hx Pacemaker: No Hx Peripheral Edema: No - PULMONARY Hx Respiratory Disorders: No - NEUROLOGICAL Hx Neurological Disorder: No - HEENT 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) - RENAL Hx Chronic Kidney Disease: No - ENDOCRINE/METABOLIC Hx Endocrine Disorders: No - HEMATOLOGICAL/ONCOLOGICAL Hx Blood Disorders: No - INTEGUMENTARY Hx Dermatological Problems: No - MUSCULOSKELETAL/RHEUMATOLOGICAL Hx Musculoskeletal Disorders: No Hx Falls: No - GASTROINTESTINAL Hx Gastritis: Yes - GENITOURINARY/GYNECOLOGICAL Hx Genitourinary Disorders: No - PSYCHIATRIC Hx Substance Use: No - SURGICAL HISTORY Hx Coronary Stent: Yes (x2) - ANESTHESIA Hx Anesthesia: Yes Hx Anesthesia Reactions: No Meds Allergies/Adverse Reactions: Allergies Allergy/AdvReac Type Severity Reaction Status Date / Time pain med AdvReac Uncoded 09/23/18 16:13 - Medications Medications: Current Medications Amlodipine Besylate (Norvasc) 5 mg PO DAILY [facility] Aspirin (Aspirin Chewable) 81 mg PO DAILY [facility] Last Admin: 09/24/18 09:10 Dose: 81 mg Clopidogrel Bisulfate (Plavix) 75 mg PO DAILY [facility] Last Admin: 09/24/18 09:10 Dose: 75 mg Enoxaparin Sodium (Lovenox) 40 mg SC DAILY [facility] Last Admin: 09/24/18 10:19 Dose: 40 mg Famotidine (Pepcid) 20 mg PO DAILY [facility] Last Admin: 09/24/18 09:10 Dose: 20 mg Influenza Virus Vaccine (Flucelvax Quad [id number] Syr) 60 mcg IM .ONCE ONE Stop: 09/26/18 10:01 Lisinopril (Zestril) 2.5 mg PO DAILY [facility] Last Admin: 09/24/18 09:10 Dose: 2.5 mg Metoprolol Tartrate (Lopressor) 25 mg PO BID [facility] Last Admin: 09/24/18 17:34 Dose: Not Given Multivitamins (Hexavitamin) 1 tab PO DAILY [facility] Last Admin: 09/24/18 09:10 Dose: 1 tab Nitroglycerin (Nitro-Bid 2% Oint) 1 ea TOP Q6H PRN PRN Reason: Other Rosuvastatin Calcium (Crestor) 5 mg PO DAILY [facility] Last Admin: 09/24/18 09:14 Dose: 5 mg Results - Vital Signs Recent Vital Signs: Last Vital Signs Temp 97.9 F 03/04/19 15:42 Pulse 59 L 09/24/18 15:42 Resp 20 09/24/18 15:42 BP 142/68 09/24/18 17:34 Pulse Ox 100 09/24/18 15:42 - Labs Result Diagrams: 09/23/18 17:18 09/23/18 17:18 Labs: Laboratory Results - last 24 hr 09/24/18 09/24/18 02:04 08:06 Total Creatine Kinase 101 94 CK-MB (Mass) 1.05 1.09 Troponin I < 0.0120 < 0.0120 Assessment & Plan - Assessment and Plan (Free Text) Assessment: 77 F with hx of CAD s/p stents 2010, HYN and hyperlipidemia admitted for chest pain and dizziness Check stress test and ECHO in am
[2018-09-25 07:32] LABS: BASO # 0.2 K/uL (0.0-0.2); BASO % 2.7 % (0.0-2.0); EOS # 0.1 K/uL (0.0-0.7); EOS % 1.4 % (0.0-4.0); HEMOGLOBIN 13.9 g/dL (11.0-16.0); LYMPH % 32.8 % (20.0-40.0); MEAN CELL VOLUME 76.6 fL (81.0-99.0); MEAN CORPUSCULAR HEMOGLOBIN 24.1 pg (27.0-31.0); MEAN CORPUSCULAR HGB CONC 31.4 g/dL (33.0-37.0); MONO # 0.6 K/uL (0.0-0.8); MONO % 9.6 % (0.0-10.0); NEUT # 3.3 K/uL (1.8-7.0); NEUT % 53.5 % (50.0-75.0); NRBC % 0.1 % (0.0-2.0); RBC 5.77 Mil/uL (3.80-5.20); RED CELL DISTRIBUTION WIDTH 13.9 % (11.5-14.5); WHITE BLOOD COUNT 6.2 K/uL (4.8-10.8)
[2018-09-25 07:40] VITALS: BP 183/68; TEMP 97.8; O2SAT 98
[2018-09-25 07:48] LABS: ALB/GLOB RATIO 1.2 (1.0-2.1); ALBUMIN 4.5 g/dL (3.5-5.0); ALT/SGPT 10 U/L (9-52); AST/SGOT 27 U/L (14-36); BLOOD UREA NITROGEN 12 mg/dL (7-17); CALCIUM 9.4 mg/dl (8.6-10.4); GFR NON-AFRICAN AMERICAN > 60
[2018-09-25] MEDS: Multiple Vitamins Tab PO SCH (09:05)
[2018-09-25] MEDS: Enoxaparin 40 mg Syringe SC SCH (09:06)
--- NOTE | 2018-09-25 12:31 | CP.PCM.PN ---
Subjective - Date & Time of Evaluation Date of Evaluation: 09/25/18 Time of Evaluation: 12:29 - Subjective Subjective: ASYMPTOMATIC. Objective - Vital Signs/Intake and Output Vital Signs (last 24 hours): Temp Pulse Resp BP Pulse Ox 97.8 F 66 20 183/68 H 98 09/25/18 07:39 09/25/18 07:39 09/25/18 07:39 09/25/18 09:05 09/25/18 07:39 - Medications Medications: Current Medications Amlodipine Besylate (Norvasc) 5 mg PO DAILY [facility] Last Admin: 09/25/18 09:05 Dose: 5 mg Aspirin (Aspirin Chewable) 81 mg PO DAILY [facility] Last Admin: 09/25/18 09:04 Dose: 81 mg Clopidogrel Bisulfate (Plavix) 75 mg PO DAILY [facility] Last Admin: 09/25/18 09:05 Dose: 75 mg Enoxaparin Sodium (Lovenox) 40 mg SC DAILY [facility] Last Admin: 09/25/18 09:06 Dose: 40 mg Famotidine (Pepcid) 20 mg PO DAILY [facility] Last Admin: 09/25/18 09:05 Dose: 20 mg Influenza Virus Vaccine (Flucelvax Quad [id number] Syr) 60 mcg IM .ONCE ONE Stop: 09/26/18 10:01 Lisinopril (Zestril) 5 mg PO DAILY [facility] Last Admin: 09/25/18 10:48 Dose: 5 mg Metoprolol Tartrate (Lopressor) 25 mg PO BID [facility] Last Admin: 09/25/18 09:05 Dose: 25 mg Multivitamins (Hexavitamin) 1 tab PO DAILY [facility] Last Admin: 09/25/18 09:05 Dose: 1 tab Nitroglycerin (Nitro-Bid 2% Oint) 1 ea TOP Q6H PRN PRN Reason: Other Rosuvastatin Calcium (Crestor) 5 mg PO DAILY [facility] Last Admin: 09/25/18 09:05 Dose: 5 mg - Labs Labs: 09/25/18 07:19 09/25/18 07:19 PT 12.1 SECONDS (9.7-12.2) 09/23/18 17:18 INR 1.1 09/23/18 17:18 APTT 30 SECONDS (21-34) 09/23/18 17:18 - Constitutional Appears: No Acute Distress, Chronically Ill - Eye Exam Eye Exam: Normal appearance, PERRL - ENT Exam ENT Exam: Mucous Membranes Moist - Respiratory Exam Respiratory Exam: Clear to Ausculation Bilateral - Cardiovascular Exam Cardiovascular Exam: REGULAR RHYTHM, +S1, +S2 - GI/Abdominal Exam GI & Abdominal Exam: Soft, Normal Bowel Sounds - Extremities Exam Extremities Exam: Full ROM, Normal Capillary Refill, Normal Inspection. absent: Joint Swelling, Pedal Edema Assessment and Plan - Assessment and Plan (Free Text) Assessment: CHEST PAIN CAD. HTN. TROPONIN NEG. Plan: D/C HOME. PT REFUSING FURTHER W/U.
[2018-09-25] MEDS ORDERED: Influenza Vaccine 60 mcg/0.5 mL SYR (4YR UP) IM ONE (13:03)
[2018-09-25 13:04] VITALS: PULSE 81
--- NOTE | 2018-09-25 17:53 | CARD ---
APPROVED REPORT Date of service: 09/24/2018 EKG Measurement Heart [id number] <Conclusion> Sinus bradycardia Moderate voltage criteria for LVH, may be normal variant Borderline ECG
--- NOTE | 2018-09-25 23:07 | CP.PCM.PN ---
Subjective - Date & Time of Evaluation Date of Evaluation: 09/25/18 Time of Evaluation: 08:10 - Subjective Subjective: Patient seen and evaluated. Denies chest pain and dyspnea Patient is refusing the stress test Review Of Systems Constitutional: Negative for: Fever, Chills, Weakness Cardiovascular: Positive for: Chest Pain. Negative for: Palpitations Respiratory: Negative for: Shortness of Breath Gastrointestinal: Negative for: Nausea, Vomiting Neurological: Positive for: Dizziness. Negative for: Weakness, Numbness Physical Exam - Physical Exam Appears: Well, Non-toxic, No Acute Distress Skin: Normal Color, Warm, Dry Head: Atraumatic, Normacephalic Neck: Normal ROM, Supple Chest: Symmetrical, No Deformity Cardiovascular: Rhythm Regular, No Murmur Respiratory: No Accessory Muscle Use Gastrointestinal/Abdominal: Soft, No Tenderness, Other (colostomy bag) Neurological/Psych: Oriented x3, Normal Speech, Normal Cognition Assessment & Plan - Assessment and Plan (Free Text) Assessment: 77 F with hx of CAD s/p stents 2010, HYN and hyperlipidemia admitted for chest pain and dizziness Patient for stress test and ECHO Patient currently refusing the stress test Will pursue again Objective - Vital Signs/Intake and Output Vital Signs (last 24 hours): Temp Pulse Resp BP Pulse Ox 97.8 F 81 20 183/68 H 98 09/25/18 07:39 09/25/18 12:52 09/25/18 07:39 09/25/18 09:05 09/25/18 12:52 - Labs Labs: 09/25/18 07:19 09/25/18 07:19 PT 12.1 SECONDS (9.7-12.2) 09/23/18 17:18 INR 1.1 09/23/18 17:18 APTT 30 SECONDS (21-34) 09/23/18 17:18
[2018-09-26] MEDS ORDERED: Influenza Vaccine 60 mcg/0.5 mL SYR (4YR UP) IM ONE (10:00)
== END 2018-09-25 15:11 | disposition home or self-care (01) ==
LOC: C.ER 16:08 → C.9E 18:18 → C.5S 19:08
PROVIDERS: ADMIT Internal Medicine; ATTEND Internal Medicine
DX: R07.9 Chest pain, unspecified (principal); I25.10 Atherosclerotic heart disease of native coronary artery without angina pectoris; E78.00 Pure hypercholesterolemia, unspecified; E78.5 Hyperlipidemia, unspecified; I10 Essential (primary) hypertension; K27.9 Peptic ulcer, site unspecified, unspecified as acute or chronic, without hemorrhage or perforation; Z93.3 Colostomy status; Z95.5 Presence of coronary angioplasty implant and graft; K29.70 Gastritis, unspecified, without bleeding; R42 Dizziness and giddiness
CPT/HCPCS: 36415; 71045; 80053; 84484; 85025; 85610; 85730; 93005; 93306; 97110; 97161; 99285; G0378; G8978; G8979; G8980; J1650

== ENCOUNTER 2018-11-02 18:46 | Emergency (ER) | payer MEDICARE, MEDICAID ==
[2018-11-02 18:47] VITALS: BMI 16.3
--- NOTE | 2018-11-02 19:31 | C.PDOC ---
History Of Present Illness Patient presents to the ED c/o rectal pain. Patient states she has a hard time going to the bathroom. Patient saw her PMD, had an enema with no relief to symptoms. Patient has a clear colostomy bag. Patient denies fever, chills, CP, SOB, nausea, vomit, diarrhea, rash. Time Seen by Provider: 11/02/18 19:30 Chief Complaint (Nursing): GI Problem History Per: Patient History/Exam Limitations: no limitations Onset/Duration Of Symptoms: Days Current Symptoms Are (Timing): Still Present Reports Recently: Treated By A Physician (PMD) Recent travel outside of the [place]: No Additional History Per: Patient Past Medical History Reviewed: Historical Data, Nursing Documentation, Vital Signs Vital Signs: Last Vital Signs Temp 97.8 F 11/02/18 18:54 Pulse 105 H 11/02/18 18:54 Resp 20 11/02/18 18:54 BP 180/89 H 11/02/18 18:54 Pulse Ox 99 11/02/18 18:54 - Medical History PMH: CAD, Cardia Arrhythmia, Gastritis, HTN, Hypercholesterolemia Denies: Atrial Fibrillation, CHF, Mitral Valve Prolapse, Peripheral Edema, Chronic Kidney Disease Surgical History: Coronary Stent (x2) Denies: Pacemaker Family History: States: No Known Family Hx - Social History Hx Tobacco Use: No Hx Alcohol Use: No Hx Substance Use: No - Immunization History Hx Tetanus Toxoid Vaccination: No Hx Influenza Vaccination: No Hx Pneumococcal Vaccination: No Review Of Systems Constitutional: Negative for: Fever, Chills Cardiovascular: Negative for: Chest Pain Respiratory: Negative for: Shortness of Breath Gastrointestinal: Positive for: Constipation, Rectal Pain. Negative for: Nausea, Vomiting, Abdominal Pain Skin: Negative for: Rash Neurological: Negative for: Weakness, Numbness, Headache, Dizziness Physical Exam - Physical Exam Appears: Non-toxic, No Acute Distress Skin: Warm, Dry Head: Normacephalic Eye(s): right: Other (blind), left: Normal Inspection Neck: Supple Chest: Symmetrical Cardiovascular: Rhythm Regular Respiratory: No Rales, No Rhonchi, No Wheezing Gastrointestinal/Abdominal: Soft, No Tenderness, Distention, No Guarding, No Rebound, Other (left sided colostomy bag, tympanic to percussion) Rectal: Other (No stool on the vault) Back: No CVA Tenderness Extremity: Bilateral: Atraumatic, Normal Color And Temperature, Normal ROM Neurological/Psych: Oriented x3, Normal Speech, Normal Cognition Gait: Steady ED Course And Treatment - Laboratory Results Result Diagrams: 11/02/18 19:52 11/02/18 19:52 O2 Sat by Pulse Oximetry: 99 (ON RA) Pulse Ox Interpretation: Normal Progress Note: Plan: - Labs. - Obs series X-Ray. - IV fluids. - UA Reevaluation Time: 22:02 Reassessment Condition: Improved Medical Decision Making Medical Decision Making: Upon provider reevaluation patient is feeling better, is medically stable, and requires no further treatment in the ED at this time. Patient will be discharged home with Rx for miralax. Counseling was provided and all questions were answered regarding diagnosis and need for follow up withdr adiel foster. There is agreement to discharge plan. Return if symptoms persist or worsen. Disposition Counseled Patient/Family Regarding: Studies Performed, Diagnosis, Need For Followup, Rx Given - Disposition Referrals: Mirtha Foster MD [Staff Provider] - Disposition: HOME/ ROUTINE Disposition Time: 19:31 Condition: FAIR Additional Instructions: Please return if symptoms recur Prescriptions: Polyethylene Glycol 3350 [Miralax] 17 gm PO DAILY #270 ml Instructions: Constipation, Adult (DC) Forms: [employer] ([place]) - Clinical Impression Clinical Impression: Abdominal pain, Constipation - Scribe Statement The provider has reviewed the documentation as recorded by the Scribe Alexandr Benedict All medical record entries made by the Scribe were at my direction and personally dictated by me. I have reviewed the chart and agree that the record accurately reflects my personal performance of the history, physical exam, [facility] decision making, and the department course for this patient. I have also personally directed, reviewed, and agree with the discharge instructions and disposition.
[2018-11-02] MEDS ORDERED: Sodium Chloride 0.9% 1,000 ML IV ONE (19:44)
[2018-11-02 19:57] LABS: BASO # 0.1 K/uL (0.0-0.2); BASO % 1.1 % (0.0-2.0); EOS # 0.1 K/uL (0.0-0.7); EOS % 0.5 % (0.0-4.0); HEMOGLOBIN 12.5 g/dL (11.0-16.0); LYMPH # 1.3 K/uL (1.0-4.3); LYMPH % 11.3 % (20.0-40.0); MEAN CELL VOLUME 75.3 fL (81.0-99.0); MEAN CORPUSCULAR HGB CONC 31.8 g/dL (33.0-37.0); MEAN PLATELET VOLUME 7.7 fL (7.2-11.7); MONO # 1.1 K/uL (0.0-0.8); MONO % 10.2 % (0.0-10.0); NEUT # 8.5 K/uL (1.8-7.0); NEUT % 76.9 % (50.0-75.0); NRBC % 0.1 % (0.0-2.0); RBC 5.22 Mil/uL (3.80-5.20); RED CELL DISTRIBUTION WIDTH 14.9 % (11.5-14.5)
[2018-11-02 20:06] LABS: WHITE BLOOD COUNT 11.1 K/uL (4.8-10.8)
[2018-11-02 20:10] LABS: ALB/GLOB RATIO 1.3 (1.0-2.1); ALBUMIN 4.1 g/dL (3.5-5.0); AST/SGOT 19 U/L (14-36); BLOOD UREA NITROGEN 10 mg/dL (7-17); CALCIUM 9.3 mg/dl (8.6-10.4); GFR NON-AFRICAN AMERICAN > 60; LIPASE 163 U/L (23-300)
[2018-11-02 20:14] LABS: ALT/SGPT < 6 U/L (9-52)
[2018-11-02] MEDS ORDERED: Magnesium Citrate Oral SOL (300 ml) PO ONE (20:29)
[2018-11-02 22:14] VITALS: BP 165/63; PULSE 73; RESP 18; TEMP 98.1; O2SAT 98
--- NOTE | 2018-11-03 08:10 | RAD ---
Abdomen three views History: Abdominal pain. Comparison: None available. Findings: Biapical pleural thickening with upper lobe granulomatous changes. Diffuse increased interstitial lung markings. Bibasilar breast and nipple shadows. Heart size within normal limits. Coronary calcifications and or stenting. Right hilar prominence. Moderate fecal retention in the colon. Few distended loops of small bowel in the left linette abdomen. Probable calcified fibroid lesion in projecting over the uterus. Degenerative changes in the spine and hips. Impression: Moderate fecal retention in the colon.
== END 2018-11-02 22:38 | disposition home or self-care (01) ==
LOC: C.ER 18:46
DX: K59.00 Constipation, unspecified (principal); R10.9 Unspecified abdominal pain
CPT/HCPCS: 74022; 80053; 83690; 85025; 96360; 96361; 99284; J7030

== ENCOUNTER 2018-11-03 11:17 | Inpatient (IN) | payer MEDICARE, MEDICAID | END 2018-11-12 17:23 | DRG 389 | LOC: C.ER 11:17 → C.9E 15:43 → C.3T 16:10 | PROC: 0DCP7ZZ Extirpation of Matter from Rectum, Via Natural or Artificial Opening (ICD-10-PCS; principal; 2018-11-04 10:00) | PROC: 0WJP7ZZ Inspection of Gastrointestinal Tract, Via Natural or Artificial Opening Approach (ICD-10-PCS; 2018-11-04 10:00) | DX: K56.41 Fecal impaction (principal); K61.1 Rectal abscess; Z68.1 Body mass index [BMI] 19.9 or less, adult; D64.9 Anemia, unspecified; E78.5 Hyperlipidemia, unspecified; G89.29 Other chronic pain; H54.7 Unspecified visual loss; I25.10 Atherosclerotic heart disease of native coronary artery without angina pectoris; Z93.3 Colostomy status; Z95.5 Presence of coronary angioplasty implant and graft; I10 Essential (primary) hypertension; K29.70 Gastritis, unspecified, without bleeding ==